=== PATIENT | female | born 1970 | race Caucasian/White ===

== ENCOUNTER 2023-05-29 13:56 | Outpatient (CLI) | payer BC ==
--- NOTE | 2023-06-05 10:58 | Mammography Report ---
BILATERAL DIGITAL SCREENING MAMMOGRAM 3D/2D: 05/29/2023 CLINICAL: Routine screening. Additional films were requested but not obtained. Both breasts are heterogeneously dense, which may obscure small masses (category c / 51-75% glandular tissue). No significant masses, calcifications, or other findings are seen in either breast. IMPRESSION: NEGATIVE There is no mammographic evidence of malignancy. A 1 year screening mammogram is recommended. Based on the Tyrer Cuzick model (a risk assessment model) the patients lifetime risk is 12.5% and he r 10 year risk is 3.4%. According to the ACR, ACS, and NCCN guidelines, an annual breast MRI exam amy ng with mammogram is recommended if the patients lifetime risk is 20% or greater. This exam was interpreted at Station ID: [id number]. NOTE: For mammograms, a report in lay terms will be sent to the patient. Approximately 15% of breast malignancies will not be visualized mammographically. In the management of a palpable breast mass, a negative mammogram must not discourage biopsy of a clinically suspicious lesion. Electronically Signed By: Naldo grace/jacky:06/05/2023 09:48:05 letter sent: No_Letter ACR BI-RADS Category 1: Negative 3341F PARENCHYMAL PATTERN: (D) - The breast(s) demonstrate(s) heterogeneously dense fibroglandular susi cordero. BI-RADS CATEGORY: (1) - 1 Mammogram [id number] 1 year screening LATERALITY: (B)
== END 2023-05-29 13:57 | disposition home or self-care (01) ==
LOC: DI 13:56
DX: Z12.31 Encounter for screening mammogram for malignant neoplasm of breast (principal)

== ENCOUNTER 2023-11-18 21:53 | Emergency (ER) | payer BC ==
[2023-11-18 22:05] VITALS: BP 140/86; O2SAT 98
--- NOTE | 2023-11-18 22:51 | ED Physician Documentation ---
PD HPI UPPER EXT INJURY - Stated complaint Stated Complaint: LT HAND LAC - Chief complaint Chief Complaint: Laceration - History obtained from History obtained from: Patient - History of Present Illness Location: Left, Hand (thenar area near base of thumb.) Type of injury: Laceration (cut area while using kitchen knife on food prep.) Where injury occurred: Home Timing - onset: Today Timing - details: Abrupt onset, Still present (she says started to bleed briskly and some wahsed quick and then wraped with cloth.) Improved by: Rest Worsened by: Palpating. No: Moving Associated symptoms: Numbness (slightly numb radial side of thumb.). No: Weakness Similar symptoms before: Has not had sx before Recently seen: Not recently seen PD PAST MEDICAL HISTORY - Past Medical History Past Medical History: Yes Cardiovascular: None Respiratory: None Neuro: None Endocrine/Autoimmune: HyPOthyroidism GI: None [employer]OM [employer] SERVER: None : None HEENT: None Psych: Depression, Anxiety Musculoskeletal: None Derm: None - Past Surgical History Past Surgical History: Yes /[employer]OM [employer]ER: section - Allergies Allergies/Adverse Reactions: Allergies Allergy/AdvReac Type Severity Reaction Status Date / Time No Known Drug Allergies Allergy Verified 11/18/23 21:58 - Social History Does the pt smoke?: No Smoking Status: Never smoker Does the pt drink ETOH?: No Does the pt have substance abuse?: No - Immunizations Immunizations are current?: Yes PD ED PE NORMAL - Vitals Vital signs reviewed: Yes - General General: Alert and oriented X 3, No acute distress, Well developed/nourished - Derm Derm: Normal color, Warm and dry - Extremities Extremities: Other (left thenar/base thumb lac 2 cm just into muscle, with small vessel spurting blood when pressure released. Good color and cap refill in thumb so collateral is good. ) - Neuro Neuro: Alert and oriented X 3, No motor deficit, Other (diminished but not abscent sensation to touch and pinprick on radial palmar side of thumb. ) Results - Vitals Vitals: Oxygen O2 Source Room air Procedures - Laceration (location) left distal thenar area Length in cm: 2 Wound type: Linear, Into muscle, Clean Neurovascular status: Motor intact, Vascular intact, Other (decreased but not absent sensation radial side of palmar thumb.) Anesthesia: Lidocaine 1% with epi Wound preparation: Irrigated copiously NS, Wound explored, To the base Skin layer closure: Nylon, Interrupted, Size #-0 - enter number (4), Sutures - enter # (7) Other: Patient tolerated well, No complications, Dressing applied, Tetanus UTD PD Medical Decision Making - ED course Complexity details: considered differential (small spurting of vessel when unwrapped. Stopped with suturing of the wound; did not specifically ligate the vessel. Has decreased sensation to touch/pinprick on radial side thumb, so presume partial nerve lac. Good movement of thumb. Lac just to muscle but not affecting function. No FB seen. ), d/w patient Departure - Departure Disposition: 01 Home, Self Care Clinical Impression: Digital nerve injury Hand laceration Qualifiers: Encounter type: initial encounter Foreign body presence: without foreign body Laterality: left Qualified Code(s): S61.412A - Laceration without foreign body of left hand, initial encounter Condition: Stable Record reviewed to determine appropriate education?: Yes Instructions: ED Laceration Hand Comments: It is okay to wash and shower. Clean off the wound twice a day with soap and water, or peroxide and water. Apply some antibiotic ointment to it to keep it moist. Also to watch for signs of infection such as purulence, redness or increasing pain. Return to your primary care or the ER at the specified time for suture removal. Suture removal 8 to 10 days. Tylenol ibuprofen if needed for pains. It does look like the injury went into just the surface part of the muscle belly so there will be some pain with range of motion and use. There was a small blood vessel involved that was bleeding well. The nerve on that side of the thumb runs very close to that so the numbness that you have there is probably some partial injury of the nerve. Hopefully this will come back to normal function over the course of a few weeks or so. Range of motion of the thumb gently but some use of it to keep it from being stiff as it heals up. You can use the thumb splint initially for the first few days just to help protect it. Recheck if signs of infection. Forms: PCP List Discharge Date/Time: 11/19/23 00:13
== END 2023-11-19 00:13 | disposition home or self-care (01) ==
LOC: ED 21:53
DX: S64.32XA Injury of digital nerve of left thumb, initial encounter (principal); W26.0XXA Contact with knife, initial encounter; Y93.G1 Activity, food preparation and clean up; Y92.009 Unspecified place in unspecified non-institutional (private) residence as the place of occurrence of the external cause
CPT/HCPCS: 12041; 99282

== ENCOUNTER 2024-01-23 09:30 | Outpatient (CLI) | payer BC ==
[2024-01-23 09:43] LABS: HCT - HEMATOCRIT 39.7 % (37.0-47.0); HGB - HEMOGLOBIN 13.2 g/dL (12.0-16.0); MEAN CORPUSCULAR HGB CONC 33.2 g/dL (32.0-36.0); MEAN CORPUSCULAR VOLUME 93.2 fL (81.0-99.0); MEAN PLATELET VOLUME 9.3 fL (7.9-10.8); RED BLOOD COUNT 4.26 10^6/uL (4.20-5.40); RED CELL DISTRIBUTION WIDTH 12.6 % (12.0-15.0); WHITE BLOOD COUNT 5.8 x10^3/uL (4.8-10.8)
[2024-01-23 10:02] LABS: ALBUMIN 4.7 g/dL (3.2-5.5); ALBUMIN/GLOBULIN RATIO 1.7 (1.0-2.2); ALKALINE PHOSPHATASE 47 IU/L (42-121); ALT ALANINE AMINOTRANSFERASE 10 IU/L (10-60); AST ASPARTATE AMINOTRANSFERASE 16 IU/L (10-42); BILIRUBIN,TOTAL 0.6 mg/dL (0.2-1.0); BUN - BLOOD UREA NITROGEN 12 mg/dL (6-20); CALCIUM 9.7 mg/dL (8.5-10.3); CARBON DIOXIDE - CO2 28 mmol/L (21-32); CHLORIDE 103 mmol/L (101-111); CHOL/HDL RATIO 3.1 (<4.4); CHOLESTEROL 289 mg/dL; CREATININE 0.6 mg/dL (0.6-1.3); GFR - MDRD 104 (>89); GLUCOSE 98 mg/dL (74-104); HDL CHOLESTEROL 94 mg/dL; LDL CHOLESTEROL,CALCULATED 183 mg/dL; LDL/HDL RATIO 1.9 (<4.4); POTASSIUM 4.4 mmol/L (3.5-4.5); SODIUM 137 mmol/L (135-145); TOTAL PROTEIN 7.4 g/dL (6.4-8.9); TRIGLYCERIDES 59 mg/dL (48-352); VLDL CHOLESTEROL 12 mg/dL
[2024-01-23 10:13] LABS: THYROID STIMULATING HORMONE 0.49 uIU/mL (0.34-5.60)
[2024-01-23 14:28] LABS: ESTIMATED AVERAGE GLUCOSE 94 mg/dL (70-100); HEMOGLOBIN A1c% 4.9 % (4.27-6.07)
== END 2024-01-23 09:31 | disposition home or self-care (01) ==
LOC: LAB 09:30
DX: Z00.00 Encounter for general adult medical examination without abnormal findings (principal); R63.5 Abnormal weight gain; E03.8 Other specified hypothyroidism; F32.5 Major depressive disorder, single episode, in full remission
CPT/HCPCS: 36415; 80053; 80061; 83036; 83721; 84443; 85027